=== PATIENT | female | born 1990 | race Caucasian/White ===

== ENCOUNTER 2017-10-16 19:05 | Emergency (ER) | payer OTHER ==
[2017-10-16 19:09] VITALS: BP 113/65; PULSE 70; TEMP 98.8; BMI 30.8
[2017-10-16] MEDS ORDERED: KETOROLAC TROMETHAMINE 60 MG/2 ML VIAL IM ONE (19:23)
--- NOTE | 2017-10-16 19:25 | PDOC ---
History of Present Illness - General History Source: Patient Exam Limitations: No Limitations - History of Present Illness Initial Comments: 10/16/17 20:00 The patient is a 27 year old female, with a significant past medical history of asthma, who presents to the emergency department with, two days of chest pain and left arm pain. 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 Darinel Cevallos and reported her chest pain, palpitations who performed a cardiogram and advised her to visit the ED for further evaluation. She reports her left arm pain and it is hard to move. She reports feels a pulling in her back when she moves her hand. Secondary to her symptoms, she reports pain upon deep inspiration and SOB. She reports to have taken Tylenol without relief at 2pm. She denies recent fevers, chills, headache or dizziness. She denies recent nausea, vomit, diarrhea or constipation. She denies recent dysuria, frequency, urgency or hematuria. PAST MEDICAL HISTORY: Asthma PAST SURGICAL HISTORY: no significant history FAMILY HISTORY: no pertinent history SOCIAL HISTORY: Pt lives with family and is employed. MEDICATIONS: reviewed ALLERGIES: As per nursing notes ROS: General: No fevers or chills, no weakness, no weight loss HEENT: No change in vision. No sore throat,. No ear pain CardioVascular: +Chest pain. +SOB Respiratory:No cough, or wheezing. Gastrointestinal: no nausea, vomiting, diarrhea or constipation, No rectal bleeding Genitourinary: No dysuria, hematuria, or frequency Musculoskeletal: No joint or muscle pain or swelling Extremities: +Left arm pain when moving. Neurologic: No headache, vertigo, dizziness or loss of consciousness Psychiatric: nor depression Skin: No rashes or easy bruising Endocrine: no increased thirst or abnormal weight change Allergic: no skin or latex allergy All other systems reviewed and normal Physical Exam: General: Well-nourished well-developed individual, no acute distress HEENT: Throat: Normal, tonsils normal, no erythema or exudate Neck: Supple, no meningeal signs, no lymphadenopathy Eyes::Pupils equal reactive and round, extraocular motion intact Chest: +Anterior chest wall pain reproduced on palpation. Cardiac: S1-S2 normal, regular rate and rhythm, no murmurs rubs or gallops Respiratory: Lungs clear to auscultation bilateral Abdomen: Soft, nondistended, normal bowel sounds, nontender to palpation diffusely Extremities: Warm, dry, no cyanosis, clubbing, or edema Skin: No rashes Neuro: Alert and oriented x3, nonfocal exam, grossly intact, normal gait Psych: Normal mood and affect <Bhavana Crawford - Last Filed: 10/16/17 20:00> - General History Source: Patient Exam Limitations: No Limitations - History of Present Illness Initial Comments: medical decision making This is a 27-year-old healthy female who comes in from her primary care doctor' s office for evaluation of skeletal muscle anterior chest wall pain. Patient has been having several days of palpitations and chest pain. Pain is much worse with movement respiration and use of the anterior chest wall muscles. Patient denies any associated symptoms of shortness of breath nausea vomiting diaphoresis or radiation to the back or neck Patient was at her primary care doctor's and had an EKG there and was told to come to the ER for evaluation Patient has no cardiac risk factors, and it is very unlikely that this is cardiac in origin most likely skeletal muscle. We'll obtain EKG, cardiac enzymes and basic labs. Will medicate with an anti- inflammatory Toradol We'll reassess and follow up results, A portion of this note was documented by scribe services under my direction. I have reviewed the details of the note, within reason, and agree with the documentation. The case summary and management plan written by me. 10/16/17 20:50 Reassessment patient feels better post Toradol. Patient heart score is 0 Patient's EKG is normal Patient's labs including troponin are normal. Patient was reassured and told to take an anti-inflammatory such as Aleve and follow-up with her doctor tomorrow patient given copies of her blood work and EKG here there is no suspicion of her pain cardiac in origin. Pain appears to be skeletal muscle or possibly costochondritis. There also appears to be an anxiety component to her symptoms given the palpitations. <Mario Girard I - Last Filed: 10/16/17 20:53> - General Chief Complaint: Pain, Acute Stated Complaint: CHEST WALL PAIN Time Seen by Provider: 10/16/17 19:13 Past History <Bhavana Crawford - Last Filed: 10/16/17 20:00> - Past Medical History Asthma: Yes COPD: No - Suicide/Smoking/Psychosocial Hx Smoking History: Never smoked Have you smoked in the past 12 months: No Hx Alcohol Use: No Drug/Substance Use Hx: No <Mario Girard I - Last Filed: 10/16/17 20:53> - Past Medical History Allergies/Adverse Reactions: Allergies Allergy/AdvReac Type Severity Reaction Status Date / Time No Known Allergies Allergy Verified 10/02/16 02:00 Home Medications: Ambulatory Orders Albuterol Sulfate Inhaler - [Ventolin HFA Inhaler -] 2 inh PO Q4H #1 inh *Physical Exam - Vital Signs Last Vital Signs Temp Pulse Resp BP Pulse Ox 98.8 F 70 16 113/65 100 10/16/17 19:07 10/16/17 19:07 10/16/17 19:07 10/16/17 19:07 10/16/17 19:07 <Bhavana Crawford - Last Filed: 10/16/17 20:00> - Vital Signs Last Vital Signs Temp Pulse Resp BP Pulse Ox 98.8 F 70 16 113/65 100 10/16/17 19:07 10/16/17 19:07 10/16/17 19:07 10/16/17 19:07 10/16/17 19:07 <Mario Girard I - Last Filed: 10/16/17 20:53> Heart Score/ECG Review - History History: Slightly suspicious - Electrocardiogram EKG: Normal - Age Age: </= 45 - Risk Factors Based on the list above the patient has:: No risk factors known - Troponin Troponin: </= normal limit - Score Heart Score - Total: 0 <Mario Girard I - Last Filed: 10/16/17 20:53> ED Treatment Course - LABORATORY CBC & Chemistry Diagram: 10/16/17 19:50 10/16/17 19:50 - Medications Given in the ED: ED Medications Discontinued Medications Generic Name Dose Route Start Last Admin Trade Name Freq PRN Reason Stop Dose Admin Ketorolac Tromethamine 60 mg 10/16/17 19:23 10/16/17 19:54 Toradol Injection - IM 10/16/17 19:24 Not Given ONCE ONE Ketorolac Tromethamine 30 mg 10/16/17 19:32 10/16/17 19:55 Toradol Injection - IVPUSH 10/16/17 19:33 30 mg ONCE ONE Administration <Bhavana Crawofrd - Last Filed: 10/16/17 20:00> - LABORATORY CBC & Chemistry Diagram: 10/16/17 19:50 10/16/17 19:50 <Mario Girard I - Last Filed: 10/16/17 20:53> *DC/Admit/Observation/Transfer - Attestations Scribe Attestion: 10/16/17 20:01 Documentation prepared by Bhavana Crawford, acting as medical microbiologist for Mario Girard MD. <Bhavana Crawford - Last Filed: 10/16/17 20:00> - Discharge Dispostion Admit: No Decision to Admit order Date/Time: 10/16/17 20:13 For the pain take Aleve 2 tablets twice a day with food don't take on an empty stomach. Keep your appointment with your primary care doctor for tomorrow. Return to the emergency department immediately with ANY new, persistent or worsening symptoms. Continue any medications as previously prescribed by your physician. . Please make sure your doctor reviews the results of your emergency evaluation. Thank you for coming to the Emergency Department today for your care. It was a pleasure to see you today. Please note that your evaluation is INCOMPLETE until you follow-up with your doctor. <Mario Girard I - Last Filed: 10/16/17 20:53> Diagnosis at time of Disposition: Acute chest wall pain - Discharge Dispostion Disposition: HOME Condition at time of disposition: Stable - Referrals Referrals: Darinel Cevallos MD [Primary Care Provider] - - Patient Instructions Additional Instructions: For the pain take Aleve 2 tablets twice a day with food don't take on an empty stomach. Follow-up with your Dr. Dr. Cevallos's tomorrow. Take copies of your blood work and workup that we did here in the emergency room with you to Dr. Cevallos tomorrow. Return to the emergency department immediately with ANY new, persistent or worsening symptoms. Continue any medications as previously prescribed by your physician. You should follow up with your primary doctor as soon as possible regarding today's emergency department visit. . Please make sure your doctor reviews the results of your emergency evaluation. Thank you for coming to the Emergency Department today for your care. It was a pleasure to see you today. Please note that your evaluation is INCOMPLETE until you follow-up with your doctor. - Post Discharge Activity
[2017-10-16] MEDS ORDERED: KETOROLAC TROMETHAMINE 30 MG/1 ML VIAL IVPUSH ONE (19:32)
[2017-10-16 20:09] LABS: BASO % 1.4 % (0-2.0); EOS % 2.5 % (0-4.5); HEMATOCRIT 38.2 % (32.4-45.2); HEMOGLOBIN 12.7 GM/dl (10.7-15.3); LYMPH % 31.5 % (8-40); MCH 28.1 pg (25.7-33.7); MCHC 33.3 g/dl (32.0-36.0); MEAN CELL VOLUME 84.5 fl (80-96); MEAN PLT VOLUME 8.1 fl (7.5-11.1); MONO % 4.9 % (3.8-10.2); NEUT % 59.7 % (42.8-82.8); PLATELET COUNT 332 K/MM3 (134-434); RBC 4.52 M/mm3 (3.60-5.2); RDW 12.7 % (11.6-15.6); WHITE BLOOD COUNT 8.8 K/mm3 (4.0-10.8)
[2017-10-16 20:13] LABS: URINE APPEARANCE Clear; URINE BILIRUBIN Negative (NEGATIVE); URINE GLUCOSE (UA) Negative (NEGATIVE); URINE KETONE 1+ (NEGATIVE); URINE NITRITE Negative (NEGATIVE); URINE PROTEIN Negative (NEGATIVE); URINE UROBILINOGEN 0.2 (0.2-1.0)
[2017-10-16 20:14] LABS: URINE BLOOD 3+ (NEGATIVE); URINE COLOR YELLOW
[2017-10-16 20:16] LABS: HCG,QUALITATIVE URINE NEGATIVE
[2017-10-16 20:20] LABS: EPI CELLS FEW /HPF; URINE BACTERIA FEW /hpf (NEGATIVE); URINE RBC 0-2 /hpf (0-3)
[2017-10-16 20:30] LABS: TROPONIN I (DFP) 0.1 ng/ml (0.03-0.50)
[2017-10-16 20:47] LABS: ALBUMIN 3.7 g/dl (3.5-5.0); ALK PHOS 71 U/L (32-92); ANION GAP 8 (8-16); BILIRUBIN,TOTAL 0.2 mg/dl (0.2-1.0); BLOOD UREA NITROGEN 18 mg/dl (7-18); CALCIUM 8.7 mg/dl (8.4-10.2); CHLORIDE 105 mmol/L (98-107); CO2 24 mmol/L (22-28); CREATININE 0.7 mg/dl (0.6-1.3); POTASSIUM 3.6 mmol/L (3.5-5.1); SGOT/AST 19 U/L (10-42); SGPT/ALT 17 U/L (10-40); SODIUM 137 mmol/L (136-145); TOT PROT 6.3 g/dl (6.4-8.3)
[2017-10-16 22:19] LABS: GLUCOSE,RANDOM 116 mg/dL (74-106)
--- NOTE | 2017-10-18 10:13 | EKG ---
Test Reason : Blood Pressure : / mmHG Vent. Rate : 076 BPM Atrial Rate : 076 BPM P-R Int : 146 ms QRS Dur : 080 ms QT Int : 414 ms P-R-T Axes : 030 005 012 degrees QTc Int : 465 ms NORMAL SINUS RHYTHM WITH SINUS ARRHYTHMIA MINIMAL VOLTAGE CRITERIA FOR LVH, MAY BE NORMAL VARIANT BORDERLINE ECG Confirmed by MD CARMEN, MANDIE ([id number]) on 10/18/2017 10:13:26 AM Referred By: MD DAVIS Confirmed By:MANDIE MORALES MD
== END 2017-10-16 21:03 | disposition home or self-care (01) ==
LOC: FER 19:05
PROC: 3E0333Z Introduction of Anti-inflammatory into Peripheral Vein, Percutaneous Approach (ICD-10-PCS; principal; 2017-10-16)
DX: R07.89 Other chest pain (principal)
CPT/HCPCS: 36415; 80053; 81003; 81015; 82550; 82553; 84484; 84703; 85025; 93005; 99283-25